=== PATIENT | male | born 1955 | race Caucasian/White ===

== ENCOUNTER 2020-07-11 13:35 | Outpatient (CLI) | payer SELFPAY ==
--- NOTE | 2020-07-11 15:40 | RAD ---
RIGHT FOREARM 2 VIEWS: HISTORY: Soft tissue swelling. Right forearm pain. FINDINGS: No osseous abnormality. Minimal spurring at the coronoid process of the olecranon. Calcifications a long the lateral epicondyle may indicate old injury. Mild degenerative change at the radiocarpal. IMPRESSION: No acute osseous abnormality. POS: OFF
--- NOTE | 2020-07-11 15:43 | RAD ---
RIGHT ELBOW 4 VIEWS: HISTORY: Elbow pain. Swelling. FINDINGS: Degenerative changes are noted with spurring from the coronoid process. There are 2 extraosseous nadira cific densities which are corticated along the medial epicondyle of the distal humerus. This may rep resent old ligamentous injury. No fracture. No joint effusion. IMPRESSION: No acute osseous abnormality. POS: OFF
== END 2020-07-11 13:36 | disposition home or self-care (01) ==
LOC: MADRAD 13:35
PROVIDERS: ATTEND Family Medicine
DX: M79.89 Other specified soft tissue disorders (principal)